=== PATIENT | male | born 1950 | race Caucasian/White ===

== ENCOUNTER 2016-10-09 22:01 | Emergency (ER) | payer MEDICARE, BC ==
[2016-10-10 03:07] VITALS: BP 153/98
--- NOTE | 2016-10-10 11:20 | RAD ---
INDICATION: Swelling extending into hand. Question wrist mass. COMPARISON: No relevant prior exams available on the [facility] for comparison. TECHNIQUE: AP, lateral, and oblique views LEFT wrist. REPORT: Mild soft tissue swelling without focality. Normal articular alignment. Negative for fracture or focal osseous lesion. Mild osteophytosis at the basal joint of the thumb. Mild joint space narrowing at the scaphoid trapezium articulation. IMPRESSION: 1. Nonspecific soft tissue swelling. 2. Mild osteoarthritis.
--- NOTE | 2016-10-13 09:40 | ED ---
Upper Extremity Pain - HPI Summary HPI Summary: Patient presents with left wrist pain without known injury. He does daily back exercises that involve getting on his hands and knees, so maybe this is the culprit. He has pain with certain movements, mild swelling and not bruising. He denies warmth, redness or fever. - History of Current Complaint Chief Complaint: EDExtremityUpper Stated Complaint: LT WRIST PAIN Time Seen by Provider: 10/10/16 01:18 Hx Obtained From: Patient Mechanism Of Injury: Unknown Onset/Duration: Started Days Ago - 1 Timing: Constant Severity Initially: Mild Severity Currently: Mild Pain Location: Wrist Character: Sharp, Aching Aggravating Factor(s): Movement Alleviating Factor(s): Nothing Associated Signs & Symptoms: Positive: Swelling - mild Related History: Dominant Hand Right - Allergies/Home Medications Allergies/Adverse Reactions: Allergies Allergy/AdvReac Type Severity Reaction Status Date / Time Amlodipine [From Norvasc] Allergy "FEELING Verified 10/10/16 01:29 WEIRD" Hydrochlorothiazide Allergy DECREASE Verified 10/10/16 01:29 POTASSIUM Sulfa Drugs Allergy NAUSEA/VOMI Verified 10/10/16 01:29 TING PMH/Surg Hx/FS Hx/Imm Hx Endocrine/Hematology History: Denies: Hx Diabetes Cardiovascular History: Reports: Hx Hypertension - CONTROL WITH MEDICATION, Other Cardiovascular Problems/Disorders - CHOLESTEROL CONTROL WITH MEDS History: Denies: Hx Renal Disease Sensory History: Reports: Hx Contacts or Glasses - GLASSES Denies: Hx Hearing Aid Opthamlomology History: Reports: Hx Contacts or Glasses - GLASSES - Surgical History Surgery Procedure, Year, and Place: 1953 [place]OMY, [place]. 1976 VASECTOMY, [facility]. COLONOSCOPY, [facility] Hx Anesthesia Reactions: No Infectious Disease History: No Infectious Disease History: Denies: Traveled Outside the [place] in Last 30 Days - Family History Known Family History: Positive: None - Social History Occupation: Retired Lives: With Family Alcohol Use: Daily Alcohol Amount: 1-2 drinks/night Substance Use Type: Reports: None Smoking Status (MU): Never Smoked Tobacco Review of Systems Positive: Myalgia, Edema - mild Negative: Bruising Negative: Paresthesia, Numbness All Other Systems Reviewed And Are Negative: Yes Physical Exam Triage Information Reviewed: Yes Vital Signs On Initial Exam: Initial Vitals Temp Pulse Resp BP Pulse Ox 97.5 F 98 16 195/89 95 10/09/16 22:03 10/09/16 22:03 10/09/16 22:03 10/09/16 22:03 10/09/16 22:03 Vital Signs Reviewed: Yes Appearance: Positive: Well-Appearing, Well-Nourished, Pain Distress Skin: Positive: Warm, Skin Color Reflects Adequate Perfusion, Dry, Soft Head/Face: Positive: Normal Head/Face Inspection Eyes: Positive: EOMI, NINOSKA, Conjunctiva Clear ENT: Positive: Hearing grossly normal Respiratory/Lung Sounds: Positive: Breath Sounds Present Cardiovascular: Positive: RRR Musculoskeletal: Positive: Strength/ROM Intact - with pain, Pain @ - TTP left DRUJ, Edema Left - mild Neurological: Positive: Sensory/Motor Intact, Alert, Oriented to Person Place, Time, NV Bundle Intact Distally, Normal Gait Psychiatric: Positive: Affect/Mood Appropriate AVPU Assessment: Alert Diagnostics - Vital Signs Vital Signs Temp Pulse Resp BP Pulse Ox 10/10/16 02:15 99.0 F 85 16 153/98 10/10/16 01:27 97.9 F 79 16 168/97 96 10/09/16 22:03 97.5 F 98 16 195/89 95 - Laboratory Lab Statement: Any lab studies that have been ordered have been reviewed, and results considered in the medical decision making process. - Radiology No standard instances Xray Interpretation: No Acute Changes Radiology Interpretation Completed By: Radiologist Course/Dx - Diagnoses Differential Diagnosis/HQI/PQRI: Positive: Arthritis, Bursitis, Contusion, Fracture (Closed), Hematoma, Strain, Sprain Provider Diagnoses: Left wrist sprain Discharge - Discharge Plan Condition: Stable Disposition: HOME Patient Education Materials: Wrist Sprain (ED) Referrals: Julius Simons DO [Primary Care Provider] - Additional Instructions: Wear your splint to protect you as your pain improves. Come out of the splint several times daily to perform gentle range of motion exercises to avoid stiffness. Elevate your hand above your heart and apply ice for 20 minutes several times daily to decrease swelling and pain. Use ibuprofen 400mg three times daily with meals for the next 3-5 days to decrease swelling and pain as well. Follow-up with your primary care provider if your symptoms do not begin to improve in the next 7-10 days. Return to the emergency department if your symptoms worsen.
== END 2016-10-10 02:16 | disposition home or self-care (01) ==
LOC: ED 22:01
DX: S63.502A Unspecified sprain of left wrist, initial encounter (principal); M25.532 Pain in left wrist; X58.XXXA Exposure to other specified factors, initial encounter; Y93.9 Activity, unspecified; Y92.9 Unspecified place or not applicable
CPT/HCPCS: 99282

== ENCOUNTER 2016-12-11 08:03 | Emergency (ER) | payer MEDICARE, BC ==
[2016-12-11 08:14] VITALS: BP 179/98
--- NOTE | 2016-12-11 09:01 | UC ---
Back Pain HPI - HPI Summary HPI Summary: BENT OVER IN SHOWER LAST NIGHT AND FELT A SHARP PAIN IN LEFT LOWER BACK/ BUTTOCK. WORSE WHEN HE DOES STAIRS. NO NUMBNESS OR TINGLING. NO SADDLE ANESTHESIA OR LOSS OF BOWEL/BLADDER CONTROL. DID NOT FALL. DID NOT TAKE ANY ANALGESICS. - History of Current Complaint Chief Complaint: UCBackPain Stated Complaint: LOWER BACK/HIP PAIN Time Seen by Provider: 12/11/16 08:45 Hx Obtained From: Patient Onset/Duration: Sudden Onset, Lasting Hours, Still Present Timing: Constant Severity Initially: Moderate Severity Currently: Moderate Pain Intensity: 4 Pain Scale Used: 0-10 Numeric Back Pain: Is Discrete @ - LEFT LOW BACK Character: Sharp Aggravating: Movement Alleviating: Rest Associated Signs And Symptoms: Positive: Negative - Allergies/Home Medications Allergies/Adverse Reactions: Allergies Allergy/AdvReac Type Severity Reaction Status Date / Time Amlodipine [From Norvasc] Allergy "FEELING Verified 10/10/16 01:29 WEIRD" Atenolol Allergy Fatigue Verified 12/11/16 08:08 Diltiazem [Cardizem] Allergy Dizziness Verified 12/11/16 08:08 Hydrochlorothiazide Allergy DECREASE Verified 10/10/16 01:29 POTASSIUM Statins Allergy See Comment Verified 12/11/16 08:08 Sulfa Drugs Allergy NAUSEA/VOMI Verified 10/10/16 01:29 TING Verapamil Allergy See Comment Verified 12/11/16 08:08 PMH/Surg Hx/FS Hx/Imm Hx - Additional Past Medical History Additional PMH: SLEEP APNEA Endocrine History: Dyslipidemia Cardiovascular History: Hypertension - Surgical History Surgical History: Yes Surgery Procedure, Year, and Place: 1953 [place]ONSILLECTOMY, [place], [place]. 1976 VASECTOMY, [facility]ICE. COLONOSCOPY, [facility] - Family History Known Family History: Positive: None Negative: Hypertension, Diabetes - Social History Alcohol Use: Daily Alcohol Amount: 1-2 drinks/night Substance Use Type: None Smoking Status (MU): Never Smoked Tobacco Review of Systems Constitutional: Negative Skin: Negative Respiratory: Negative Cardiovascular: Negative Gastrointestinal: Negative Musculoskeletal: Decreased ROM, Myalgia All Other Systems Reviewed And Are Negative: Yes Physical Exam Triage Information Reviewed: Yes Appearance: Well-Appearing, No Pain Distress, Well-Nourished Vital Signs: Initial Vital Signs Temp 98.0 F 12/11/16 08:10 Pulse 81 12/11/16 08:10 Resp 16 12/11/16 08:10 BP 179/98 12/11/16 08:10 Pulse Ox 99 12/11/16 08:10 Vital Signs Reviewed: Yes Eyes: Positive: Conjunctiva Clear ENT: Positive: Hearing grossly normal Neck: Positive: Supple Respiratory: Positive: No respiratory distress, No accessory muscle use Cardiovascular: Positive: Pulses Normal Abdomen Description: Positive: Soft Musculoskeletal: Positive: No Edema, ROM Limited @ - BACK, Other: - NEG STRAIGHT LEG RAISE Neurological: Positive: Alert Psychological: Positive: Age Appropriate Behavior Skin: Negative: rashes Back Pain Course/Dx - Differential Dx/Diagnosis Provider Diagnoses: ACUTE LOW BACK STRAIN Discharge - Discharge Plan Condition: Stable Disposition: HOME Patient Education Materials: Low Back Strain (ED) Referrals: Julius Simons DO [Primary Care Provider] - If Needed Additional Instructions: BE SURE TO GO THROUGH SLOW RANGE OF MOTION AND STRETCHING EXERCISES DAILY YOU ARE ABLE TO PREVENT STIFFENING UP AND MAKING THE DISCOMFORT WORSE. IBUPROFEN MAX DOSE: 600MG (3 TABS) EVERY 6 HRS OR 800MG (4 TABS) EVERY 8 HRS
== END 2016-12-11 09:05 | disposition home or self-care (01) ==
LOC: UCEAST 08:03
DX: S39.012A Strain of muscle, fascia and tendon of lower back, initial encounter (principal); X50.9XXA Other and unspecified overexertion or strenuous movements or postures, initial encounter; Y92.9 Unspecified place or not applicable; G47.30 Sleep apnea, unspecified; I10 Essential (primary) hypertension; Z88.2 Allergy status to sulfonamides; Z88.8 Allergy status to other drugs, medicaments and biological substances
CPT/HCPCS: 99211; G0463

== ENCOUNTER 2021-04-03 01:34 | Observation (INO) ==
[2021-04-03 02:12] LABS: ABS Basophils 0.1 10^3/ul (0-0.2); ABS Eosinophils 0.3 10^3/ul (0-0.6); ABS Lymphocytes 1.1 10^3/ul (1.0-4.8); ABS Monocytes 1.2 10^3/ul (0-0.8); ABS Neutrophils 15.6 10^3/ul (1.5-7.7); Eosinophil % 1.4 %; Hematocrit 40 % (42-52); Hemoglobin 13.6 g/dL (14.0-18.0); Lymphocyte % 5.8 %; Mean Corpuscular HGB Conc 34 g/dL (31-36); Mean Corpuscular Hemoglobin 33 pg (27-31); Mean Corpuscular Volume 96 fL (80-94); Mean Platelet Volume 7.3 fL (7.4-10.4); Platelet Count 322 10^3/uL (150-450); Red Blood Count 4.12 10^6 /uL (4.18-5.48); Red Cell Distribution Width 13 % (10-15); White Blood Count 18.2 10^3/uL (3.5-10.8)
[2021-04-03 02:20] LABS: INR 1.37 (0.86-1.15)
[2021-04-03 02:31] LABS: ALT 27 U/L (7-52); AST 18 U/L (13-39); Albumin 3.6 g/dL (3.2-5.2); Albumin/Globulin Ratio 1.1 (1-3); Alkaline Phosphatase 99 U/L (35-149); Anion Gap 10 mmol/L (2-11); Blood Urea Nitrogen 14 mg/dL (6-24); CO2 Carbon Dioxide 24 mmol/L (22-32); Calcium 9.3 mg/dL (8.6-10.3); Chloride 103 mmol/L (101-111); Globulin 3.3 g/dL (2-4); Glucose 167 mg/dL (70-100); Potassium 3.9 mmol/L (3.5-5.0); Sodium 137 mmol/L (135-145); Total Protein 6.9 g/dL (6.4-8.9)
[2021-04-03 02:36] LABS: Troponin I 0.06 ng/mL (<0.03)
[2021-04-03] MEDS ORDERED: Iohexol 350 (CONTRAST) 500 ML MDV IV ONE (02:36)
[2021-04-03 04:47] LABS: Rapid COVID-19 Molecular Undetected (Undetected)
[2021-04-03] MEDS ORDERED: Iodixanol (CONTRAST) 320 MG/ML 100 ML SDV IV ONE (04:52)
[2021-04-03] MEDS ORDERED: Cefepime 1 GM in Dextrose 1 GM/50 ML BAG IV ONE (05:03)
[2021-04-03 06:00] LABS: Troponin I 0.06 ng/mL (<0.03)
[2021-04-03] MEDS ORDERED: Ondansetron 4 mg VIAL 2 MG/ML 2 ml VIAL IV PRN (06:11)
[2021-04-03] MEDS ORDERED: Al Hydrox/Mg Hydrox/Simet LIQ 30 ML UDC PO PRN (06:11)
[2021-04-03 07:48] LABS: C Reactive Protein 131.39 mg/L (<8.01)
[2021-04-03 08:51] LABS: Troponin I 0.05 ng/mL (<0.03)
[2021-04-03] MEDS ORDERED: Enoxaparin 40 MG/0.4 ML SYR SUBCUT SCH (09:00)
[2021-04-03] MEDS ORDERED: Vitamin THERAPEUTIC TAB PO SCH (09:00)
[2021-04-03] MEDS ORDERED: Cholecalciferol (VIT D3) 1,000 unit TAB PO SCH (09:00)
[2021-04-03] MEDS ORDERED: Aspirin EC 325 mg TAB.EC PO SCH (09:00)
[2021-04-03 14:54] VITALS: BP 105/52
[2021-04-03 14:59] LABS: Hematocrit 35 % (42-52); Hemoglobin 12.1 g/dL (14.0-18.0); Mean Corpuscular HGB Conc 35 g/dL (31-36); Mean Corpuscular Hemoglobin 33 pg (27-31); Mean Corpuscular Volume 95 fL (80-94); Mean Platelet Volume 7.1 fL (7.4-10.4); Platelet Count 290 10^3/uL (150-450); Red Cell Distribution Width 13 % (10-15); White Blood Count 15.2 10^3/uL (3.5-10.8)
[2021-04-03 15:35] LABS: Urine Appearance Clear; Urine Bacteria Absent (Absent); Urine Bilirubin Negative (Negative); Urine Blood Negative (Negative); Urine Color Amber; Urine Glucose Negative (Negative); Urine Ketones Trace (Negative); Urine Nitrite Negative (Negative); Urine Protein 1+(30 mg/dL) (Negative); Urine Red Blood Cell Trace(0-2/hpf) (Absent); Urine Urobilinogen Negative (Negative); Urine White Blood Cell Absent (Absent)
[2021-04-04] MEDS ORDERED: Aspirin EC 81 mg TAB.EC (enteric coated) PO SCH (09:00)
== END 2021-04-03 14:46 | disposition short-term general hospital (02) ==
LOC: EDHOLD 01:34 → ED 01:34 → MEDTELE 11:01 → EDHOLD 14:52
PROVIDERS: ADMIT Hospitalist; ATTEND Hospitalist